=== PATIENT | male | born 1970 | race Asian ===

== ENCOUNTER 2018-08-25 22:12 | Emergency (ER) | payer MEDICAID, OTHER ==
[~2018-08-25] VITALS: Ht 165.1 cm; Wt 69.9 kg
[2018-08-25 22:33] VITALS: BP 118/68
--- NOTE | 2018-08-25 22:33 | NUR ---
TO BED # 01 AMBULATORY, REPORT GIVEN TO WAQAS THOMPSON
--- NOTE | 2018-08-25 22:45 | NUR ---
48/M CO COUGH 2 WEEKS 0/10 PAIN. A0X4. ABLE TO VERBALIZE NEEDS. REPORTS CHEST TIGHTNESS WHEN COUGHING LUNG SOUND CLEAR. MD MADE AWARE. WILL CONTINUE TO MONITOR. NO SIGNS OF ACUTE DISTRESS AT THIS TIME
--- NOTE | 2018-08-25 23:48 | NUR ---
Patient discharged with v/s stable. Written and verbal after care instructions given and explained. Patient alert, oriented and verbalized understanding of instructions. Ambulatory with steady gait. All questions addressed prior to discharge. ID band removed. Patient advised to follow up with PMD. Rx of AZITHROMYCIN, GUATITUSSIN given. Patient educated on indication of medication including possible reaction and side effects. Opportunity to ask questions provided and answered.
[2018-08-25 23:49] VITALS: BP 125/73
== END 2018-08-25 23:48 | disposition home or self-care (01) ==
LOC: MED 22:12
DX: J18.9 Pneumonia, unspecified organism (principal); Z98.890 Other specified postprocedural states
CPT/HCPCS: 71045; 99283; Q0092